=== PATIENT | male | born 1940 | race Caucasian/White ===

== ENCOUNTER 2021-10-26 13:11 | Outpatient (REF) | payer BC, SELFPAY ==
--- NOTE | ~2021-10-26 | XR_ITS ---
EXAMINATION: XR SHOULDER, LEFT CLINICAL INFORMATION: Status post fall pain in left shoulder COMPARISON: 10/19/2017 TECHNIQUE: AP external rotation, Grashey, scapular Y, and axillary views of the left shoulder. FINDINGS: There is new undisplaced fracture of the left acromion, better visualized on Y view and not clearly seen on AP view. Acromioclavicular joint and glenohumeral joints are preserved. XR/XR shoulder LT min 2V IMPRESSION: Fracture of the left acromion
== END 2021-10-26 13:12 | disposition home or self-care (01) ==
LOC: HO.HMGCX 13:11
PROVIDERS: Visit Provider Physician Assistant
DX: M25.512 Pain in left shoulder (principal); W00.9XXA Unspecified fall due to ice and snow, initial encounter
CPT/HCPCS: 73030

== ENCOUNTER → 2021-11-03 10:31 | Outpatient (BNVA) | payer BC, SELFPAY | PROVIDERS: PCP Internal Medicine; Visit Provider Physician Assistant ==

== ENCOUNTER 2021-12-01 06:00 | Outpatient (REF) | payer BC, SELFPAY ==
--- NOTE | ~2021-12-01 | XR_ITS ---
EXAMINATION: XR SHOULDER, LEFT CLINICAL INFORMATION: Pain left shoulder. COMPARISON: None. TECHNIQUE: AP external rotation, Grashey, scapular Y, and axillary views of the left shoulder. FINDINGS: There is a vertical fracture involving the left acromion. There is healing callus formation. The left AC joint is narrowed with periapical spurring. The soft tissues are normal. XR/XR shoulder LT min 2V IMPRESSION: Healing fracture left acromion. Mild degenerative changes left AC joint.
== END 2021-12-01 06:01 | disposition home or self-care (01) ==
LOC: HO.HOSX 06:00
PROVIDERS: Visit Provider Physician Assistant
DX: M25.512 Pain in left shoulder (principal); S42.125A Nondisplaced fracture of acromial process, left shoulder, initial encounter for closed fracture; X58.XXXA Exposure to other specified factors, initial encounter; Y93.9 Activity, unspecified; Y92.9 Unspecified place or not applicable; Y99.8 Other external cause status
CPT/HCPCS: 73030

== ENCOUNTER 2022-01-03 09:00 | Outpatient (RCR) | payer BC, SELFPAY ==
--- NOTE | 2022-01-03 09:58 | MHC.PT.DC ---
[facility] [place] [facility] [place] [facility] [place] [facility] [address] Stephanie Cortes [address] [phone] F: [phone] F: [phone] F: [phone] F: [phone] Physical Therapy Discharge Report Diagnosis: This is an 81 yo male presenting to skilled PT with a script for L shoulder fx Date of Surgery: Date of Evaluation: 12/13/21 Date of Discharge: 01/03/22 Treatments to Date: 4 Cancellations to Date: 0 No Shows to Date: 0 Discharge Status: Achieved Goals Improved Function Independent with HEP Patient Elected to Stop Discharge Summary: 01/03: Alen came to appointment today reporting that he feels very well and would like to make today his DC day. He has a very thorough HEP to continue on his own at home. In general he has healed well, improved his pain, improved his ROM and is improving his strength. He feels well with his progress and is ready for DC. He has been DC'd from his ortho as well. Educated him to call office if anything changes. DC to HEP. SPADI improved to 6 on disability and 1 on pain. Electronically signed by: Bri Belle PT Please sign and return to therapist. Thank you for your referral.
== END 2022-01-03 09:59 | disposition home or self-care (01) ==
LOC: HO.PTCHIC 09:00
PROVIDERS: PCP Physician Assistant Medical; Visit Provider Physician Assistant
DX: S42.125A Nondisplaced fracture of acromial process, left shoulder, initial encounter for closed fracture (principal)
CPT/HCPCS: 97110; 97162